=== PATIENT | female | born 1990 | race Caucasian/White ===

== ENCOUNTER 2025-05-19 13:03 | Outpatient (AMB) | payer OTHER, SELFPAY ==
--- NOTE | 2025-05-19 13:09 | MHC.PC.OV ---
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 Transferring care from [facility] ([place], [place]). Medical records have been requested and have received. 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 Her last physical examination was approximately three to four years ago. She does not take any daily medications and has no known past medical history. Her surgical history is significant for a tubal ligation. She has seasonal allergies, for which she takes Anna as needed. The patient reports having a skin tag and has an appointment scheduled with a buggy ladle tender. The patient is currently seeking a new OB-[facility]ISON [facility] provider due to a recent change in her health insurance. She has been experiencing difficulty finding a new provider who is accepting new patients. Health Maintenance - The patient's last physical was 3-4 years ago. - Comprehensive blood work, including kidney function, liver function, thyroid studies, cholesterol, and glucose, has been ordered. - She is seeking a new OB-[facility]ISON [facility]EN for continued gynecological care following a change in her insurance. - The patient has an upcoming dermatology appointment for a skin tag. - A follow-up visit is scheduled in seven weeks to review lab results and conduct a more complete physical exam. Social History Results [facility] Medical History (Updated 05/20/25 @ 10:32 by KAITLIN Manning) Seasonal allergies Surgical History (Updated 05/19/25 @ 13:17 by ARIK Sumner) History of pelvic surgery History of tonsillectomy and adenoidectomy History of tubal ligation Social History (Updated 05/19/25 @ 13:09 by ARIK Sumner) Housing: Apartment Alcohol intake: never Patient Tobacco Use Status: Never used Tobacco e-Cigarette/Vaping Use: Currently Using Second Hand Smoke Exposure: No service: No Current occupational status: employed Current occupation: [employer] Cognitive needs: No Hearing needs: No Vision needs: No Questionnaire PHQ-9 Over the last 2 weeks, how often have you been bothered by any of the following problems? 1. Little interest or pleasure in doing things: not at all 2. Feeling down, depressed, or hopeless: not at all 3. Trouble falling or staying asleep, or sleeping too much: not at all 4. Feeling tired or having little energy: not at all 5. Poor appetite or overeating: not at all 6. Feeling bad about yourself - or that you are a failure or have let yourself or your family down: not at all 7. Trouble concentrating on things, such as reading the newspaper or watching television: not at all 8. Moving or speaking so slowly that other people could have noticed. Or the opposite - being so fidgety or restless that you have been moving around a lot more than usual: not at all 9. Thoughts that you would be better off or of hurting yourself in some way: not at all Total score: 0 Source: Developed by Drs. Ga Sherman, Porsha Baron, Keanu Diana and colleagues, with an educational federica from [employer]. Thrive Questionnaire I am a: Patient What is your living situation today?: I have a steady place to live Within the past 12 months, did the food you bought not last and you didn't have the money to get more?: Never true Within the past 12 months, did you worry whether your food would run out before you got money to buy more?: Never true Do you have trouble paying for medicines?: I choose not to answer this question Do you have trouble getting transportation to medical appointments?: No Do you have trouble paying your heating and electricity bill?: No Do you have trouble taking care of your child, family member or friend?: No Do you have trouble with day-to-day activities such as bathing, preparing meals, shopping, managing finances, etc.?: No Are you currently unemployed and looking for a job?: Yes Are you interested in more education?: No Please select the resources that you would like help with: None Currently or been in a relationship where the following occur: No concerns reported THRIVE Score: 0 AUDIT C Alcohol Use Questionnaire (AUDIT-C) 1. How often do you have a drink containing alcohol?: Monthly or less 2. How many drinks containing alcohol do you have on a typical day when you are drinking?: 1 or 2 3. How often do you have six or more drinks on one occasion?: Never Total Score: 1 YOLI-7 AMB Questionnaire YOLI-7 Feeling nervous, anxious, or on edge: 0 = Not at all Not being able to stop or control worryin = Not at all Worrying too much about different things: 0 = Not at all Trouble relaxin = Not at all Being so restless that it is hard to sit still: 0 = Not at all Becoming easily annoyed or irritable: 0 = Not at all Feeling afraid as if something awful might happen: 0 = Not at all Total YOLI-7 score (0-4 normal; 5-9 mild; 10-14 moderate; 15-21 severe): 0 Source: Developed by Drs. Ga Sherman, Porsha Baron, Keanu Diana and colleagues, with an educational federica from [employer]. Review of Systems Narrative Review of Systems - Neurological: Reports regular, non-severe headaches. - Denies dizziness. - Cardiovascular: Denies chest pain and heart palpitations. - Respiratory: Denies shortness of breath. - Gastrointestinal: Denies abdominal pain and changes in bowel habits. - Musculoskeletal: Denies calf pain. Const Reports headache(s) (On and off) Eyes Denies loss of vision ENT Denies vertigo, Denies dizziness, Reports headache(s) (On and off) and Denies sore throat Card Denies chest pain, Denies leg edema and Denies lightheadedness Resp Denies cough, Denies hemoptysis and Denies wheezing GI Denies abdominal pain, Denies melena, Denies constipation, Denies diarrhea and Denies vomiting Denies urinary frequency, Denies dysuria and Denies urinary urgency Musc Denies arthralgias, Denies joint swelling, Denies numbness and Denies tingling Skin/Breast Reports other (Skin tags) Neuro Denies Abnormal speech present, Denies behavioral changes, Denies vertigo, Denies dizziness, Reports headache(s) (On and off), Denies loss of vision, Denies memory loss, Denies numbness and Denies tingling Psych Denies anxiety, Denies behavioral changes, Denies depression, Denies memory loss and Denies panic attacks Abdulkadir/Lymph Denies easy bleeding and Denies easy bruising Aller/Immun Denies wheezing Physical exam (Primary Care) Vital Signs: Last Vital Signs Temp 97.1 F 05/19/25 13:10 Pulse 80 05/19/25 13:10 BP 120/60 05/19/25 13:10 Pulse Ox 94 05/19/25 13:10 Oxygen Delivery Method Room Air 05/19/25 13:10 BMI result Body Mass Index 33.8 Tobacco/Smoking Status: Tobacco use Status Tobacco use date assessed 05/19/25 05/19/25 13:18 Patient Tobacco Use Status Never used Tobacco 05/19/25 13:18 e-Cigarette/Vaping Use Currently Using 05/19/25 13:18 PHQ-9: PHQ-9 Score PHQ-9: Total score 0 05/19/25 13:28 Currently or been in a relationship where the following occur: No concerns reported Narrative Physical Exam - General: Well-appearing. - HEENT: Extraocular movements intact. - Oropharynx is clear. - Lungs: Clear to auscultation bilaterally. - Abdomen: Soft, non-tender to palpation. - Extremities: No calf tenderness noted. Const General: healthy appearing, no acute distress, alert and awake Nutritional Appearance: well nourished Orientation/consciousness: oriented to person, oriented to place and oriented to time HENMT Ears: TM's normal bilaterally General nose exam: Normal nasal mucous membranes and turbinates present Eyes Conjunctivae: conjunctivae normal Sclerae: sclerae normal Pupils: Equal, round and reactive pupils present Neck Neck: Yes no lymphadenopathy and Yes no JVD Thyroid: Thyroid normal Carotids: no bruits Resp Effort & Inspection: normal respiratory effort and not tachypneic Auscultation: no crackles, no rales, no rhonchi and no wheezes Cardio Rate: regular rate Rhythm: regular rhythm Heart sounds: no murmurs and normal S1 and S2 GI Palpation (GI): Soft to palpation, nontender, no hepatomegaly and no splenomegaly Auscultation: normal bowel sounds Skin General skin exam: dry skin Lesions: lesion noted (Skin tags) Neuro General: oriented to person, oriented to place and oriented to time Cranial nerves: Yes Equal, round and reactive pupils present Speech: No Abnormal speech present Gait exam (Neuro): Normal gait present Motor exam (neuro): no tremor noted Extrem Right upper extremity: full ROM Left upper extremity: full ROM Right lower extremity: full ROM; no edema Left lower extremity: full ROM; no edema Psych Mental Status: mental status grossly normal Speech and movement: Normal speech and movement present Affect: normal affect Attitude: cooperative Thought process: Normal thought process present Coding Level of Care Code New Pt Level 4 (48221) Diagnoses Seasonal allergies J30.2 Skin tag L91.8 Generalized headaches R51.9 Time Spent (min) 37 Assessment & Plan Assessment & Plan (1) Seasonal allergies: Code(s): J30.2 - Other seasonal allergic rhinitis Category: Medical (2) Skin tag: Code(s): L91.8 - Other hypertrophic disorders of the skin Category: Medical (3) Generalized headaches: Code(s): R51.9 - Headache, unspecified Category: Medical Plan Plan Patient was informed and verbally consented to the use of an ambient scribe for clinic note documentation during this visit. 1. Encounter For General Adult Medical Examination Comprehensive lab work was ordered, including checks for kidney function, liver function, thyroid, cholesterol, and glucose. The patient was instructed to complete the labs at the hospital while fasting. A follow-up appointment is scheduled in seven weeks to review the results and conduct a more complete physical exam, which will include a review of preventive care measures such as Pap smears. The patient needs to find a new OB-[facility]ISON WARDEN due to a change in her insurance. 2. Skin Tag The patient has an upcoming appointment with a buggy ladle tender. She was advised that skin tag removal is not performed in this office and typically requires a referral. 3. Seasonal Allergic Rhinitis The patient reports using Anna as needed for seasonal allergies, which appears to be effective. Continue current management. 4. Headache The patient reports regular, non-severe headaches. No acute intervention is required at this time. Encouraged adequate hydration Discussion Notes I discussed the plan to establish care, which includes ordering comprehensive blood work to check her kidney, liver, and thyroid function, as well as her cholesterol and glucose levels. I advised her to have the labs drawn at the hospital lab while fasting for accurate results and seamless integration into her chart. We scheduled a follow-up appointment in seven weeks to review the lab results and perform a more complete physical exam, including a review of preventive care needs like Pap smears. Patient Instructions - Please go to the hospital laboratory to have your blood work done. - You must be fasting (nothing to eat or drink except water) for this test because your cholesterol and blood sugar are being checked. - The lab at the [facility] opens around 6:00 a.m. - Enter through the main hospital entrance, not the emergency room. - Return to the clinic in seven weeks for a follow-up appointment to review your lab results and have a more complete physical exam. - Continue your search for a new OB-[facility] provider that accepts your new insurance plan. - You may continue to use Anna as needed for your seasonal allergies. Orders: Orders Comprehensive [place]. Panel Fast 05/19/25 Z76.89 - Persons encountering health services in other specified circumstances Lipid Panel 05/19/25 Z76.89 - Persons encountering health services in other specified circumstances TSH reflex Free T4 05/19/25 Z76.89 - Persons encountering health services in other specified circumstances Complete Blood Count Auto Diff 05/19/25 Z76. 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
[2025-05-19 13:10] VITALS: BP 120/60; PULSE 80; TEMP 36.2; O2SAT 94; BMI 33.8
== END 2025-05-19 13:36 | disposition home or self-care (01) ==
LOC: HO.HMCH 13:04
DX: J30.2 Other seasonal allergic rhinitis (principal); L91.8 Other hypertrophic disorders of the skin; R51.9 Headache, unspecified

== ENCOUNTER → 2025-05-19 13:03 | Outpatient (BNVA) | payer OTHER, SELFPAY | DX: J30.2 Other seasonal allergic rhinitis (principal); L91.8 Other hypertrophic disorders of the skin; R51.9 Headache, unspecified | CPT/HCPCS: 99202 ==